=== PATIENT | female | born 1940 | race Caucasian/White ===

== ENCOUNTER 2021-06-02 15:21 | Emergency (ER) | payer OTHER, MEDICAID, SELFPAY ==
[~2021-06-02] VITALS: Ht 167.6 cm; Wt 81.6 kg
[~2021-06-02 15:21] MED LIST: AMLO1CAP91 PO; ASPI81CT95 PO; HYDR1TAB76 PO; METO-747 PO; ROSU10TA1 PO; [UNRECOGNIZED DRUG - CODE] PO
[2021-06-02 15:52] VITALS: BP 152/42
--- NOTE | 2021-06-02 16:55 | NUR ---
Pt taken to bed 3.
--- NOTE | 2021-06-02 17:00 | NUR ---
RSV, TATO AND FLU SWABBED AT THIS TIME. LEFT WITH TWO [facility] TECH
--- NOTE | 2021-06-02 17:19 | NUR ---
81YO F BIB DAUGHTER C/O DRY COUGH, DIFF BREATHING, LOSS OF APPETITE AND SORE THROAT X 5 DAYS. PT IS FULLY VACCINATED AGAINST COVID. PT HAD HER BOOSTER SHOT 1 WEEK AGO. PT WAS EXPOSED TO COVID+ PATIENT ON THANKSGIVING. DENIES N/V/D; SKIN IS PINK/WARM/DRY; AAOX4 AMBULATES WITH ASSIST; LUNGS WHEEZING BL; HR EVEN AND REGULAR; PATIENT STATES PAIN OF 8/10 AT THIS TIME, ONLY WITH COUGH EXERTION; VSS; PATIENT POSITIONED FOR COMFORT; HOB ELEVATED; BEDRAILS UP X2; BED DOWN. ER MD MADE AWARE OF PT STATUS. PMH: HLD, HTN, GOUT MEDS: METOPROLOL, ALLOPURINOL, AMLODIPINE, CLONIDINE, VIT D NKA
[2021-06-02 17:36] LABS: RSV NEGATIVE (NEGATIVE)
[2021-06-02 17:55] LABS: BASOPHILS % (AUTO) 0.2 % (0.0-2.0); EOSINOPHILS # (AUTO) 0.1 K/uL (0-0.4); EOSINOPHILS % (AUTO) 0.8 % (0.0-4.0); HEMATOCRIT 33.8 % (36-48); HEMOGLOBIN 11.4 g/dL (12.0-16.0); LYMPHOCYTES # (AUTO) 1.4 K/uL (2.5-16.5); LYMPHOCYTES % (AUTO) 20.5 % (20.5-51.1); MEAN CORPUSCULAR HEMOGLOBIN 30 pg (27-31); MEAN CORPUSCULAR HGB CONC 34 g/dL (33-37); MEAN CORPUSCULAR VOLUME 88.3 fL (80-94); MONOCYTES # (AUTO) 0.7 K/uL (0.8-1.0); MONOCYTES % (AUTO) 9.6 % (1.7-9.3); NEUTROPHILS # (AUTO) 4.8 K/uL (1.8-7.7); NEUTROPHILS % (AUTO) 68.9 % (42.2-75.2); PLATELET COUNT (AUTO) 179 K/uL (140-450); RED BLOOD CELL COUNT(AUTO) 3.82 MIL/uL (4.20-5.40); RED CELL DISTRIBUTION WIDTH 14.5 % (11.6-13.7); WHITE BLOOD COUNT (AUTO) 6.9 K/uL (4.8-10.8)
[2021-06-02 18:13] LABS: ALBUMIN 3.1 g/dL (3.4-5.0); ANION GAP 13.7 (8-16); ASPARTATE AMINOTRANSFERASE 31 U/L (15-37); CARBON DIOXIDE 23.5 mmol/L (21-32); CHLORIDE 99 mmol/L (98-107); CREATININE 1.6 mg/dL (0.6-1.3); GLUCOSE 132 mg/dL (74-106); POTASSIUM 4.2 mmol/L (3.5-5.1); SODIUM SERUM 132 mmol/L (136-145); TOTAL BILIRUBIN 0.3 mg/dL (0.0-1.0); UREA NITROGEN, BLOOD 38 mg/dL (7-18)
[2021-06-02] MEDS ORDERED: AZITHROMYCIN 500 MG in DEXTROSE 5% 250 ML IV ONE (19:15)
--- NOTE | 2021-06-02 19:40 | NUR ---
pt used bedside commode and back to bed.
[2021-06-02] MEDS ORDERED: cefTRIAXone 1,000 MG VIAL ONE (19:50)
[2021-06-02] MEDS ORDERED: AZITHROMYCIN 500 MG INJ VIAL IV ONE (20:32)
--- NOTE | 2021-06-02 21:22 | NUR ---
pt used bedside commode and back to bed.
--- NOTE | 2021-06-02 22:35 | NUR ---
CONY LEON [phone] CONCERN ABOUT STAYING IN ER OVERNIGHT OR BEING TRANSFERRED, WOULD RATHER SIGN OUT AND GO HOME
--- NOTE | 2021-06-02 23:24 | NUR ---
pt appears to be sleeping. eyes are closed opens to sound, equal rise and fall of chest wall. vss. pt is in stable condition. all needs met at this time. bed locked in lowest position, side railsx2.
--- NOTE | 2021-06-02 23:37 | NUR ---
pt used bedside commode and back to bed.
[2021-06-03] MEDS ORDERED: AZIT250T4 PO (00:09)
[2021-06-03 00:17] VITALS: BP 142/63
--- NOTE | 2021-06-03 00:17 | NUR ---
Patient discharged with v/s stable. Written and verbal after care instructions given and explained. Patient alert, oriented and verbalized understanding of instructions. Ambulatory with steady gait. All questions addressed prior to discharge. ID band removed. Patient advised to follow up with PMD. Rx of azithromycin given. Patient educated on indication of medication including possible reaction and side effects. Opportunity to ask questions provided and answered.
== END 2021-06-03 00:17 | disposition home or self-care (01) ==
LOC: MED 15:21
DX: J12.82 Pneumonia due to coronavirus disease 2019 (principal); U07.1 COVID-19; I11.9 Hypertensive heart disease without heart failure
CPT/HCPCS: 36415; 71045; 80053; 83880; 84484; 85025; 85379; 86140; 87040; 87420; 87426; 87804; 93005; 96365; 96368; 99285; J0456; J0696; Q0092; 96367